=== PATIENT | male | born 1975 | race Caucasian/White ===

== ENCOUNTER 2016-08-11 17:45 | Emergency (ER) | payer OTHER ==
[2016-08-11 18:26] VITALS: BP 135/81; PULSE 86; TEMP 98.3; BMI 30.9
--- NOTE | 2016-08-11 19:09 | EDPRACDOC ---
- General Information Chief Complaint: Neck Pain Stated Complaint: NECK AND SHOULDER PAIN X3 WEEKS Time Seen by Provider: 08/11/16 18:53 Information Source: Patient Home Medications: Home Medications Diazepam [Valium] 5 mg PO BID #20 tablet 08/11/16 Hydrocodone Bit/Acetaminophen [Hydrocodon-Acetaminophen 5-325] 1 - 2 tab PO Q6H PRN #15 tab 08/11/16 MetFORMIN (Immediate Release) [GLUCOPHAGE Immed Release] mg PO 0700,1700 Allergies/Adverse Reactions: Allergies Allergy/AdvReac Type Severity Reaction Status Date / Time morphine Allergy Nausea/Vomi Verified 08/11/16 18:35 ting - History of Present Illness Onset: 3 WEEKS HPI: PT C/O LEFT SIDED PULLING PAIN AND TINGLING IN LEFT FINGER THAT IS INTERMTTENT HE STATES HIS PAIN IS ON THE LEFT SIDE OF NECK AND GETS WORSE WITH TURNING HIS HEAD. Pain Severity: Moderate Tetanus Up To Date?: No Circumstances: Reports: Unknown Associated signs and symptoms: Reports: None - Treatment Prior to ED Arrival Reported Medications/Treatment DIRECTOR ADVANCED Ibuprofen/Acetaminophen (Dose/ 1000MG IBUPROFEN @1600. Time) ED Past Medical History - History Reviewed Yes Nurses notes reviewed and agree except as marked Travel Outside of [place] in the Last 3 Months?: No - Patient Medical History Cardiac History: Reports: Heart Attack Psychological History: Denies: Depression Systemic History: Reports: Diabetes Surgical History: Reports: Appendectomy - Social Medical History Smoking Status: Never smoker ETOH: None Substance Abuse: None Lives With: Other Lives In: Home EDM Review of Systems - Review of Systems ROS Negative Except as Marked: Yes All systems reviewed and were negative except as marked Constitutional: No Symptoms Reported. negative: Fever, Chills, Weakness, Fatigue, Loss of Appetite Eyes: No Symptoms Reported. negative: Redness, Blurred Vision, Double Vision, Discharge, Pain, Light Sensitive, Photophobia Ears: No Symptoms Reported. negative: Pain, Hearing Loss, Drainage, Ear Pulling Throat: No Symptoms Reported. negative: Pain, Swelling Nose: No Symptoms Reported. negative: Congestion, Bleeding, Discharge, Injection, Swelling, Deformity, Ecchymosis, Tender, Abrasion, Laceration Mouth: No Symptoms Reported. negative: Pain, Drooling Respiratory: No Symptoms Reported. negative: Cough, Brassy Cough, Barky Cough, Shortness of Breath, Wheezing, Hemoptysis Cardiovascular: No Symptoms Reported. negative: Chest Pain, Palpitations, Syncope, Edema, Orthopnea, PND, Skin Mottling, Cyanosis Gastrointestinal: No Symptoms Reported. negative: Pain, Constipation, Nausea, Vomiting, Diarrhea, Melena, Formula Intolerance Genitourinary: No Symptoms Reported. negative: Dysuria, Hematuria, Frequency, Discharge, Bleeding, Testicular Pain, Neurological: Other (INTERMITTENT TINGLING IN 3RD AND 4TH FINGER.). negative: Dizziness, Gait Difficulty, Headache, Numbness, Seizure, Speech Difficulty, Weakness Musculoskeletal: Neck (WORSE WITH TURNING HEAD.). negative: Arm, Ankle, Back, Chestwall, Elbow, Forearm, Femur, Foot, Hand, Hip, Knee, Leg, Pelvis, Ribs, Shoulder, Wrist Integumentary: No Symptoms Reported. negative: Itching, Rash, Bruising, Wound Allergic/Immunologic: No Symptoms Reported. negative: Hives, Itching Hematologic: No Symptoms Reported. negative: Lymphadenopathy, Easy Bruising, Easy Bleeding Endocrine: No Symptoms Reported. negative: Weight Gain, Weight Loss Psychiatric: No Symptoms Reported. negative: Anxiety, Depression, Hallucinations, Insomnia, Suicidal - Physical Exam Constitutional: No apparent distress, Alert (Awake) Oriented to: Time, Person, Place Last recorded Vital Signs: Last Vital Signs Temp 98.3 F 08/11/16 18:18 Pulse 86 08/11/16 18:18 Resp 20 08/11/16 18:18 BP 135/81 08/11/16 18:18 Pulse Ox 94 08/11/16 18:18 Oxygen Pulse Oxygen Saturation 94 O2 Device Room Air Oxygen Flow Rate Fraction of Inspired Oxygen ( FIO2) - HEENT Head: Normal ( normocephalic) Eye Exam: Normal (PERRL, EOMI, Sclera white) Oropharynx: Normal (Pharynx:Moist without exudate,Gums-no swelling) Tympanic Membrane: Normal ENT EAC: Normal TMJ: Normal Nose: No Symptoms Reported (septum midline) Neck: Paraspinal Tenderness (LEFT SIDE) - Respiratory/Cardiovascular Respiratory: Normal - CTA (BBS clear to auscultation without adventitious sounds ) Cardiovascular: Normal (RRR without murmur, gallop or rub) - GI Auscultation: Normal (NABS) Palpation: Normal (Soft,No rebound or guarding, non distended) Tenderness: Non tender Hanna's Sign: Negative - Musculoskeletal Back: Normal (Non-Tender) Extremities: Normal (Normal tone, Pulses 2+ No cyanosis or edema, FROM) - Integumentary Skin: Normal, Warm, Dry Lymphatics: Normal (no adenopathy) - Neurologic Memory Impaired: Normal Motor Function: Normal (Normal tone, Pulses 2+ No cyanosis or edema, FROM) Cranial Nerve: Normal (CN II-X11 intact sensation, strength 5/5) Cerebellar: Normal Mood Description: Normal Perception: Normal - Differential Diagnosis Cervical Muscle Spasm, Other (CERVICAL RADICULOPATHY) Decision Time to Discharge: 19:09 - Departure Disposition: Home Condition: Stable Final Diagnosis: Torticollis, Cervical radiculopathy Instructions: Cervical Radiculopathy (ED), Spasmodic Torticollis (ED) Education/Counseling Given To: Patient Education/Counseling Given Regarding: Diagnosis, Treatment, Prognosis, Follow Up Referrals: None,No Provider [Primary Care Provider] - One Week Arsen Nunn MD [Staff Physician] - One Week Prescriptions: Diazepam [Valium] 5 mg PO BID #20 tablet Hydrocodone Bit/Acetaminophen [Hydrocodon-Acetaminophen 5-325] 1 - 2 tab PO Q6H PRN #15 tab PRN Reason: Pain Additional Instructions: RETURN FOR WORSE OR DIFFERENT SYMPTOMS
== END 2016-08-11 19:17 | disposition home or self-care (01) ==
LOC: EDMC 17:45
DX: M43.6 Torticollis (principal); M54.12 Radiculopathy, cervical region; E11.9 Type 2 diabetes mellitus without complications; Z79.899 Other long term (current) drug therapy
CPT/HCPCS: 99283

== ENCOUNTER 2016-08-20 01:06 | Emergency (ER) | payer OTHER ==
[2016-08-20 01:28] VITALS: TEMP 98.4; BMI 31.1
--- NOTE | 2016-08-20 01:58 | EDPRACDOC ---
- General Information Chief Complaint: Ankle Pain Stated Complaint: LT ANKLE INJURY @ WORK Time Seen by Provider: 08/20/16 01:43 Information Source: Patient Mode of Arrival: Car Home Medications: Home Medications Diazepam [Valium] 5 mg PO BID #20 tablet 08/11/16 Hydrocodone Bit/Acetaminophen [Hydrocodon-Acetaminophen 5-325] 1 - 2 tab PO Q6H PRN #15 tab 08/11/16 MetFORMIN (Immediate Release) [GLUCOPHAGE Immed Release] mg PO 0700,1700 Venlafaxine HCl ER [Effexor XR] 37.5 mg PO DAILY #30 cap 08/20/16 Allergies/Adverse Reactions: Allergies Allergy/AdvReac Type Severity Reaction Status Date / Time morphine Allergy Nausea/Vomi Verified 08/20/16 01:28 ting - History of Present Illness Onset: [employer] Ankle Problem Location: Reports: Left, Lateral Mechanism: Reports: Blunt Trauma (CART PULLED ONTO ANKLE) Circumstances: Reports: Work-related Able to Bear Weight: Fully Pain Severity: Reports: Mild Associated Signs & Symptoms: Reports: None ED Past Medical History - Patient Medical History Cardiac History: Reports: Heart Attack Psychological History: Denies: Depression Systemic History: Reports: Diabetes. Denies: Cancer - Social Medical History Smoking Status: Heavy tobacco smoker (5 or more cigarettes/day or daily pipe/ cigar) - Physical Exam Constitutional: No apparent distress, Alert Last recorded Vital Signs: Last Vital Signs Temp 98.4 F 08/20/16 01:26 Pulse 99 08/20/16 01:26 Resp 20 08/20/16 01:26 BP 151/83 08/20/16 01:26 Pulse Ox 98 08/20/16 01:26 Oxygen Pulse Oxygen Saturation 98 O2 Device Room Air Oxygen Flow Rate Fraction of Inspired Oxygen ( FIO2) ED Ankle Problem Phys Exam - Musculoskeletal Ankle: Normal, Mild Tenderness (LAT MAL). negative: Swelling, Deformity, Limited ROM, Moderate Tenderness, Severe Tenderness Achilles Tendon: Normal Knee: Normal Lower Leg: Normal Foot: Normal Distal Function/Circulation: Normal - Integumentary Skin: Normal - Diagnostic Imaging Ankle Image interpreted by: Radiologist Patient Name: DIRK WYLIE LOC: ED : 07/18/1992 AGE: 24 Order Date:08/19/16 Date of Service:07/24 Report # [id number] Ord Physician: Alexi Altamirano DO Exam # [id number] Emergency Physician: Provider,ER Exam(s): [id number] RAD/DG CHEST 2V CLINICAL DATA: Cough and congestion, body aches and chest tightness. Symptoms for 4 days. EXAM: CHEST 2 VIEW COMPARISON: None. FINDINGS: The cardiomediastinal contours are normal. The lungs are clear. Pulmonary vasculature is normal. No consolidation, pleural effusion, or pneumothorax. No acute osseous abnormalities are seen. IMPRESSION: No acute pulmonary process. Electronically Signed By: Fransisca Ferrer M.D. On: 08/19/2016 23:31 Electronically Signed By: Fransisca Ferrer MD Electronically Signed Date/Time: Dictate Date/Time: 08/19/162329 Technologist: Jared Hassan Transcribed By: Stepan Transcribed Date/Time: 08/19/16 2331 - Departure Disposition: Home Condition: Stable Final Diagnosis: Contusion of ankle or foot, left, ACUTE GRIEF Depression Qualifiers: Depression Type: reactive depression Qualified Code(s): F32.9 - Major depressive disorder, single episode, unspecified Instructions: RICE: Routine Care for Injuries, Depression (ED) Education/Counseling Given To: Patient Education/Counseling Given Regarding: Diagnosis, Treatment, Prognosis Referrals: Derick Toro MD [Primary Care Provider] - One Week Prescriptions: Venlafaxine HCl ER [Effexor XR] 37.5 mg PO DAILY #30 cap - General Information Chief Complaint: Ankle Pain Stated Complaint: LT ANKLE INJURY @ WORK Time Seen by Provider: 08/20/16 01:43 Information Source: Patient Mode of Arrival: Car Home Medications: Home Medications Diazepam [Valium] 5 mg PO BID #20 tablet 08/11/16 Hydrocodone Bit/Acetaminophen [Hydrocodon-Acetaminophen 5-325] 1 - 2 tab PO Q6H PRN #15 tab 08/11/16 MetFORMIN (Immediate Release) [GLUCOPHAGE Immed Release] mg PO 0700,1700 Venlafaxine HCl ER [Effexor XR] 37.5 mg PO DAILY #30 cap 08/20/16 Allergies/Adverse Reactions: Allergies Allergy/AdvReac Type Severity Reaction Status Date / Time morphine Allergy Nausea/Vomi Verified 08/20/16 01:28 ting - History of Present Illness Onset: [employer] Reason for Seeking Treatment: Self-referral Presents With: Reports: Other (SADNESS OVER EX SEEING SOMEONE ELSE). Denies: Depression (HAS HISTORY OF DEPRESSION, OFF MEDS 4 YEARS. DID WELL IN THE PAST WITH [employer].), Suicidal Ideation, Homicidal Ideation Expresses: Denies: Suicidal Intent Stressors: Reports: Divorce, Relationships Relevant History: Reports: Depression Able to Care for Self: Yes Associated Signs and Symptoms: Reports: Other (SADNESS). Denies: Anger, Hopeless
--- NOTE | 2016-08-20 02:21 | DIRPT ---
CLINICAL DATA: Left lateral ankle pain after injury while at work. EXAM: LEFT ANKLE COMPLETE - 3+ VIEW COMPARISON: None. FINDINGS: No fracture or dislocation. The alignment and joint spaces are maintained. The ankle mortise is preserved. Small plantar calcaneal spur. No focal soft tissue abnormality. IMPRESSION: No fracture or dislocation of the left ankle. Electronically Signed By: Fransisca Ferrer M.D. On: 08/20/2016 02:18
[2016-08-20 04:02] VITALS: BP 149/83; PULSE 91
== END 2016-08-20 03:19 | disposition home or self-care (01) ==
LOC: ED 01:06
DX: S90.02XA Contusion of left ankle, initial encounter (principal); F43.21 Adjustment disorder with depressed mood; F32.9 Major depressive disorder, single episode, unspecified; F17.210 Nicotine dependence, cigarettes, uncomplicated; X58.XXXA Exposure to other specified factors, initial encounter; Y93.89 Activity, other specified; Y99.0 Civilian activity done for income or pay
CPT/HCPCS: 80307; 99282